=== PATIENT | male | born 1955 | race Caucasian/White ===

== ENCOUNTER 2017-01-24 08:18 | Day surgery (SDC) | payer OTHER ==
[2017-01-19 11:11] VITALS: BMI 26.2
[2017-01-24] MEDS ORDERED: MIDAZOLAM HCL 2 MG/2 ML SINGLE DOSE VIAL ONE (08:54)
[2017-01-24] MEDS ORDERED: LACTATED RINGERS SOLUTION 1,000 ML IV SCH (09:45)
[2017-01-24 10:20] VITALS: TEMP 97
[2017-01-24] MEDS ORDERED: ACETAMINOPHEN 325 MG TABLET (FP) PO PRN (10:56)
[2017-01-24] MEDS ORDERED: oxyCODONE HCL 5 MG TABLET PO PRN (10:57)
[2017-01-24] MEDS ORDERED: ONDANSETRON 4 MG/2 ML VIAL IVPUSH PRN (10:57)
[2017-01-24 11:15] VITALS: BP 108/66; PULSE 52
--- NOTE | 2017-01-25 09:14 | OP ---
DATE OF OPERATION: 01/24/2017 PREOPERATIVE DIAGNOSIS: Right ring trigger finger. POSTOPERATIVE DIAGNOSIS: Right ring trigger finger. OPERATIVE PROCEDURE: Right ring trigger finger release. ANESTHESIA: Local with sedation. COMPLICATIONS: None. ESTIMATED BLOOD LOSS: Minimal. INDICATION FOR PROCEDURE: The patient is a 61-year-old male with the above finding, indicated for operative treatment. Risks, benefits, and alternatives were discussed with the patient at length. Proper informed consent was obtained. DESCRIPTION OF PROCEDURE: After proper identification of the patient and the correct operative site, the patient was brought to the operating room and placed supine on the operative table. Prominences were well padded. Sedation was given by the anesthesiologist. Local anesthesia was given with 2% lidocaine. The right upper extremity was prepped and draped in the usual sterile fashion. A well-padded tourniquet was placed as well as sterile prep. An Esmarch bandage was used to exsanguinate the right upper extremity. The tourniquet was inflated to 250 mmHg. A longitudinal incision was made in the A1 dave to the ring finger. Incision was taken sharply through the skin with blunt and sharp dissection through the subcutaneous tissues. A1 dave was divided and completely released. Patient had tendinosis of the flexor tendon, and this was gently debrided. The patient was then asked to flex and extend his finger, and no further triggering was noted. The wound was irrigated with saline and repaired with a 5-0 nylon suture. Sterile dressings were applied. Patient was reversed from anesthesia and brought to the recovery room in stable condition. He tolerated the procedure well. Gerard [id number]
== END 2017-01-24 10:50 | disposition home or self-care (01) ==
LOC: FASU 08:18
PROVIDERS: ATTEND Orthopaedic Surgery Hand Surgery
PROC: 0LN70ZZ Release Right Hand Tendon, Open Approach (ICD-10-PCS; principal; 2017-01-24 09:33)
DX: M65.341 Trigger finger, right ring finger (principal)

== ENCOUNTER 2019-06-02 08:17 | Day surgery (SDC) | payer OTHER, MEDICARE ==
[2019-05-29 13:03] VITALS: BMI 26.4
[2019-06-02] MEDS ORDERED: PROPOFOL 20 ML ONE ×2 (08:45)
[2019-06-02 10:02] VITALS: TEMP 97.5
[2019-06-02 10:15] VITALS: BP 115/77; PULSE 69
== END 2019-06-02 10:16 | disposition home or self-care (01) ==
LOC: FASU-ENDO 08:17
PROVIDERS: ATTEND Internal Medicine Gastroenterology
PROC: 0DJD8ZZ Inspection of Lower Intestinal Tract, Via Natural or Artificial Opening Endoscopic (ICD-10-PCS; principal; 2019-06-02 09:29)
DX: Z12.11 Encounter for screening for malignant neoplasm of colon (principal); Z83.71 Family history of colonic polyps

== ENCOUNTER 2023-06-07 06:09 | Day surgery (SDC) | payer OTHER, MEDICARE ==
[2023-06-06 09:00] VITALS: BMI 26.7
[2023-06-07] MEDS ORDERED: MIDAZOLAM HCL 2 MG/2 ML SINGLE DOSE VIAL ONE (07:32)
[2023-06-07] MEDS ORDERED: DEXAMETHASONE SOD PHOSPHATE/PF 10 MG/ML SDV ONE (07:32)
[2023-06-07] MEDS ORDERED: ROPIVACAINE HCL 0.5% 30ML VIAL ONE (07:32)
[2023-06-07] MEDS ORDERED: PROPOFOL 20 ML ONE ×2 (08:04→08:05)
[2023-06-07] MEDS ORDERED: SEVOFLURANE 250 ML BTL ONE (08:14)
[2023-06-07] MEDS ORDERED: ONDANSETRON 4 MG/2 ML VIAL ONE (08:25)
[2023-06-07] MEDS ORDERED: DEXAMETHASONE SOD PHOSPHATE 4 MG/1 ML VIAL ONE (08:25)
[2023-06-07] MEDS ORDERED: TRANEXAMIC ACID 1000 MG/10 ML VIAL ONE (09:17)
[2023-06-07] MEDS ORDERED: oxyCODONE HCL 5 MG TABLET PO PRN (11:18)
[2023-06-07] MEDS ORDERED: ONDANSETRON 4 MG/2 ML VIAL IVPUSH PRN (11:18)
[2023-06-07] MEDS ORDERED: ACETAMINOPHEN 1000 MG/100 ML BAG IVPB PRN (11:19)
[2023-06-07] MEDS ORDERED: LACTATED RINGERS SOLUTION 1,000 ML IV SCH (11:30)
[2023-06-07 13:22] VITALS: RESP 19; TEMP 97.8
[2023-06-07 13:29] VITALS: BP 110/68; PULSE 72
== END 2023-06-07 13:15 | disposition home or self-care (01) ==
LOC: FASU 06:09
PROVIDERS: ATTEND Orthopaedic Surgery Sports Medicine
PROC: 0LB24ZZ Excision of Left Shoulder Tendon, Percutaneous Endoscopic Approach (ICD-10-PCS; principal; 2023-06-07 08:33)
DX: M75.102 Unspecified rotator cuff tear or rupture of left shoulder, not specified as traumatic (principal)
CPT/HCPCS: 94760; C1713

== ENCOUNTER 2024-01-10 22:06 | Emergency (ER) | payer OTHER, MEDICARE ==
[2024-01-10 23:34] VITALS: BP 133/80; PULSE 76; RESP 16; TEMP 98.1; BMI 26.5
== END 2024-01-11 00:03 | disposition home or self-care (01) ==
LOC: FER 22:06
PROC: 0T2BX0Z Change Drainage Device in Bladder, External Approach (ICD-10-PCS; principal; 2024-01-10)
DX: J40 Bronchitis, not specified as acute or chronic (principal); R33.9 Retention of urine, unspecified; R05.9 Cough, unspecified
CPT/HCPCS: 81003; 99283-25

== ENCOUNTER 2025-02-13 12:41 | Emergency (ER) | payer OTHER, MEDICARE ==
[2025-02-13 12:54] VITALS: RESP 18; BMI 26.4
[2025-02-13 14:09] LABS: MCHC 32.5 g/dl (32.3-36.5); MEAN CELL VOLUME 86.4 fl (79.0-92.2); MEAN PLT VOLUME 10.0 fl (9.4-12.4); RDW 13.5 % (12.2-16.4)
[2025-02-13 14:14] LABS: INR 1.05 (0.83-1.09); PROTHROMBIN TIME (PATIENT) 11.6 SEC (9.7-13.0)
[2025-02-13 14:16] LABS: ACTIVATED PTT 29.4 SECONDS (25.2-36.5)
[2025-02-13 14:32] LABS: ALK PHOS 76 U/L (45-117); CO2 28 mmol/L (21-32); CREATININE 1.0 mg/dl (0.6-1.3); GLUCOSE,RANDOM 104 mg/dl (74-106); SGOT/AST 30 U/L (15-37); SGPT/ALT 31 U/L (7-52); TOT PROT 7.5 g/dl (6.4-8.2)
[2025-02-13 14:35] LABS: EPITHELIAL CELLS 0-5 /hpf
[2025-02-13 14:36] LABS: URINE MUCUS FEW
[2025-02-13] MEDS: SODIUM CHLORIDE 0.9% 1000 ML INFUS.BAG IV ONE (14:37)
[2025-02-13 14:49] LABS: BG HCT 44.0 % (35.4-49); VENOUS BASE EXCESS -0.7 mmol/L (-2-2); VENOUS O2 SATURATION 67.3 % (70-80); VENOUS PCO2 44.7 mmHg (38-52); VENOUS PH 7.364 (7.310-7.410)
[2025-02-13 15:34] VITALS: BP 112/66; PULSE 72; TEMP 99.5
[2025-02-13 15:55] LABS: HIV INTERPRETATION NEGATIVE (NEGATIVE)
[2025-02-13 15:57] LABS: HCV DIAGNOSTIC IN-HOUSE W/RFLX NON-REACTIVE (NONREACTIVE)
== END 2025-02-13 15:45 | disposition home or self-care (01) ==
LOC: FER 12:41
DX: N39.0 Urinary tract infection, site not specified (principal); R35.0 Frequency of micturition; R50.9 Fever, unspecified; R61 Generalized hyperhidrosis
CPT/HCPCS: 36415; 71045-TC-FY; 80053; 81003; 81015; 82803; 83605; 84484; 85025; 85610; 85730; 86803; 86850; 86900; 86901; 87040; 87086; 87389; 87637-QW; 93005; 99285-25